=== PATIENT | female | born 1995 | race Caucasian/White ===

== ENCOUNTER 2019-07-24 19:00 | Emergency (ER) | payer OTHER ==
[~2019-07-24] VITALS: Ht 172.7 cm; Wt 111.1 kg
[2019-07-24] MEDS ORDERED: LATUDA40 MG PO (19:15)
[2019-07-24] MEDS ORDERED: DEXTROAMP-AMPHE20 MG PO (19:15)
[2019-07-24] MEDS ORDERED: IBUPROFEN800 MG PO (19:15)
[2019-07-24] MEDS ORDERED: MIRTAZAPINE7.5 MG PO (19:15)
[2019-07-24] MEDS ORDERED: PRAZOSIN HCL2 MG PO (19:16)
== END 2019-07-24 20:30 | disposition home or self-care (01) ==
LOC: ED 19:00
DX: S63.502A Unspecified sprain of left wrist, initial encounter (principal); X58.XXXA Exposure to other specified factors, initial encounter; F32.9 Major depressive disorder, single episode, unspecified; F41.9 Anxiety disorder, unspecified; F17.200 Nicotine dependence, unspecified, uncomplicated; Z88.8 Allergy status to other drugs, medicaments and biological substances; Z79.899 Other long term (current) drug therapy
CPT/HCPCS: 73110; 99283-25

== ENCOUNTER 2019-09-08 23:56 | Emergency (ER) | payer OTHER ==
[~2019-09-08] VITALS: Ht 172.7 cm; Wt 111.1 kg
[~2019-09-08 23:56] MED LIST: DEXTROAMP-AMPHE20 MG PO; IBUPROFEN800 MG PO; LATUDA40 MG PO; MIRTAZAPINE7.5 MG PO; PRAZOSIN HCL2 MG PO
--- OUTSIDE RECORDS SUMMARY | 2019-09-08 23:58 | XMS ---
PreManage Notification: SAMARA LYONS [employer] Events No recent Security Events currently on file CRITERIA MET - [facility] Has Care Guidelines CARE PROVIDERS There are no care providers on record at this time. Guidelines Source: [facility] [place] Guidelines Date: 07/27/2019 Care Coordination: Receiving mental health services with [facility].\T\nbsp; Please contact [facility] for mental health concerns.\T\nbsp; [facility] office: [phone]\T\nbsp; [place] office: [phone]. E.D. VISIT COUNT (12 MO.) [address] TOTAL 3 NOTE: Visits indicate total known visits. ED/UCC VISIT TRACKING (12 MO.) 09/08/2019 23:57 [facility] TYPE: Emergency COMPLAINT: - VOMITING 07/24/2019 19:00 [facility] TYPE: Emergency COMPLAINT: - WRIST INJURY DIAGNOSES: - Unspecified sprain of left wrist, initial encounter - Other correction (current) drug therapy - Anxiety disorder, unspecified - Allergy status to oth drug/meds/biol subst status - Nicotine dependence, unspecified, uncomplicated - Major depressive disorder, single episode, unspecified - Exposure to other specified factors, initial encounter [facility] DIAGNOSES: - Dizziness - Dysmenorrhea, unspecified - Diarrhea - Abdominal Pain - Nausea - Dizziness; Nausea; Abdominal Pain INPATIENT VISIT TRACKING (12 MO.) No inpatient visits to display in this time frame [email or web address]
== END 2019-09-09 03:06 | disposition home or self-care (01) ==
LOC: ED 23:56
DX: K52.9 Noninfective gastroenteritis and colitis, unspecified (principal); F32.9 Major depressive disorder, single episode, unspecified; F43.10 Post-traumatic stress disorder, unspecified; F17.200 Nicotine dependence, unspecified, uncomplicated; Z88.8 Allergy status to other drugs, medicaments and biological substances; Z79.899 Other long term (current) drug therapy
CPT/HCPCS: 80053; 81001; 83690; 84703; 85025; 96361; 96374; 99284-25; J2405; J7030

== ENCOUNTER 2022-04-21 13:10 | Emergency (ER) | payer OTHER ==
[~2022-04-21] VITALS: Ht 172.7 cm; Wt 113.4 kg
[2022-04-21] MEDS ORDERED: SERTRALINE HCL25 MG PO (13:16)
[2022-04-21] MEDS ORDERED: NAPROSYN500 MG PO (13:49)
[2022-04-21] MEDS ORDERED: LIDODERM1 EACH TOP (13:49)
== END 2022-04-21 14:21 | disposition home or self-care (01) ==
LOC: ED 13:10
DX: S16.1XXA Strain of muscle, fascia and tendon at neck level, initial encounter (principal); S06.0X0A Concussion without loss of consciousness, initial encounter; F17.200 Nicotine dependence, unspecified, uncomplicated; V89.2XXA Person injured in unspecified motor-vehicle accident, traffic, initial encounter; Z88.8 Allergy status to other drugs, medicaments and biological substances; Z79.899 Other long term (current) drug therapy
CPT/HCPCS: A9270; J1885

== ENCOUNTER 2022-06-20 20:50 | Emergency (ER) | payer OTHER ==
[~2022-06-20] VITALS: Ht 172.7 cm; Wt 113.4 kg
[~2022-06-20 20:50] MED LIST changes: +LIDODERM1 EACH TOP; +NAPROSYN500 MG PO; +SERTRALINE HCL25 MG PO
[2022-06-20] MEDS ORDERED: VENTOLIN HFA18 GM INH (22:29)
[2022-06-20] MEDS ORDERED: PREDNISONE20 MG PO (22:29)
== END 2022-06-20 22:38 | disposition home or self-care (01) ==
LOC: ED 20:50
DX: J45.901 Unspecified asthma with (acute) exacerbation (principal); F17.200 Nicotine dependence, unspecified, uncomplicated; Z88.8 Allergy status to other drugs, medicaments and biological substances; Z79.899 Other long term (current) drug therapy; Z20.822 Contact with and (suspected) exposure to COVID-19
CPT/HCPCS: 71045; 87502; 99285-25; J7512; U0003

== ENCOUNTER 2024-01-18 00:24 | Emergency (ER) | payer OTHER ==
[~2024-01-18] VITALS: Ht 172.7 cm; Wt 110.0 kg
[~2024-01-18 00:24] MED LIST changes: +COLACE100 MG PO; +OXYCONTIN10 MG PO; +PRAZOSIN HCL1 MG PO; +PREDNISONE20 MG PO; +PROVENTIL HFA6.7 GM INH; +SERTRALINE HCL100 MG PO; +TYLENOL325 M1 PO; +VENTOLIN HFA18 GM INH
[2024-01-18] MEDS ORDERED: SERTRALINE HCL100 MG PO (00:31)
[2024-01-18] MEDS ORDERED: VENTOLIN HFA18 GM INH (00:32)
[2024-01-18] MEDS ORDERED: BUPROPION HCL75 MG PO (00:33)
[2024-01-18 00:46] LABS: BASOPHILS 0.6 % (0-2); EOSINOPHILS 3.4 % (0-6); HEMATOCRIT 39.5 % (35.0-50.0); HEMOGLOBIN 13.3 g/dL (12.0-18.0); LYMPHOCYTES 19.7 % (24-44); MCH 32.6 (27-36); MCHC 33.7 g/dl (30-36); MCV 96.7 fl (81-99); MONOCYTES 8.1 % (0-12); NEUTROPHILS 68.2 % (39-80); PLATELET COUNT 266 K/uL (140-440); RBC 4.09 M/ul (4.3-5.7); RDW 13.4 (10.5-15.0)
[2024-01-18 00:59] LABS: BILIRUBIN, URINE NEGATIVE (negative); BLOOD/HGB, URINE NEGATIVE (Negative); KETONE, URINE NEGATIVE (Negative); LEUK ESTERASE, URINE NEGATIVE (negative); NITRITE, URINE NEGATIVE (negative); PH, URINE 6.5 (5-7)
[2024-01-18 01:10] LABS: ACETAMINOPHEN 0 ug/mL (10-30); ALBUMIN 3.2 g/dL (3.4-5.0); ALBUMIN/GLOBULIN RATIO 0.86 (1.1-2.4); ALCOHOL, MEDICAL <3 ng/dL (<3); ALKALINE PHOSPHATASE 74 U/L (46-116); ALT (SGPT) 17 U/L (14-59); ANION GAP 14.4 (7-21); AST (SGOT) 14 U/L (15-37); BILIRUBIN, TOTAL 0.2 ng/dL (0.2-1.0); BUN/CREATININE RATIO 8.95 (6.0-28.6); CALCIUM 8.5 mg/dL (8.5-10.1); CARBON DIOXIDE 25 mmol/L (21-32); CHLORIDE 106 mmol/L (98-107); CREATININE, SERUM 0.67 mg/dL (0.55-1.02); GLOMERULAR FILTRATION RATE,EST 123 mL/min (>60); POTASSIUM 3.4 mmol/L (3.5-5.1); PROTEIN, TOTAL 6.9 g/dL (6.4-8.2); SALICYLATE 2.6 mg/dL (2.8-20.0); TSH, 3RD GENERATION 6.437 uIU/mL (0.358-3.740); UREA NITROGEN 6 mg/dL (7-18)
[2024-01-18 01:13] LABS: AMPHETAMINES, URINE NEGATIVE (NEGATIVE); BARBITURATES, URINE NEGATIVE (NEGATIVE); BENZODIAZEPINE, URINE NEGATIVE (NEGATIVE); BUPRENORPHINE, URINE NEGATIVE (NEGATIVE); CANNABINOID, URINE POSITIVE (NEGATIVE); COCAINE, URINE NEGATIVE (NEGATIVE); ECSTASY, URINE NEGATIVE (NEGATIVE); FENTANYL, URINE NEGATIVE (NEGATIVE); METHADONE, URINE NEGATIVE (NEGATIVE); OPIATES, URINE NEGATIVE (NEGATIVE); OXYCODONE, URINE NEGATIVE (NEGATIVE); PHENCYCLIDINE, URINE NEGATIVE (NEGATIVE)
[2024-01-18] MEDS ORDERED: LORazepam 1 MG TAB PO ONE (04:15)
[2024-01-18 04:46] LABS: INFLUENZA B NAA NEGATIVE (NEGATIVE); RESPIRATORY SYNCYTIAL VIR NAA NEGATIVE (NEGATIVE)
--- NOTE | 2024-01-18 15:10 | EKG ---
[facility] [address] [place], [place] [address] Signed Sinus bradycardia with sinus arrhythmia Otherwise normal ECG No previous ECGs available Confirmed by Mauricio Montoya ([id number]) on 01/18/2024 3:09:56 PM Electronically Signed By: MAURICIO MONTOYA MD 01/18/24 1510 PATIENT NAME: SAMARA LYONS Electrocardiogram DATE OF : [birth year] PHYSICIAN: MAURICIO MONTOYA MD REPORT #: [id number] REPORT IS CONFIDENTIAL AND NOT TO BE RELEASED WITHOUT AUTHORIZATION
[2024-01-18] MEDS ORDERED: ACETAMINOPHEN 500 MG TAB PO ONE (21:45)
[2024-01-19 07:36] VITALS: BP 139/83
== END 2024-01-19 07:36 ==
LOC: ED 00:24
PROVIDERS: Internal Medicine
DX: T43.222A Poisoning by selective serotonin reuptake inhibitors, intentional self-harm, initial encounter (principal); R07.2 Precordial pain; R45.851 Suicidal ideations; F17.200 Nicotine dependence, unspecified, uncomplicated; Z88.8 Allergy status to other drugs, medicaments and biological substances; Z11.52 Encounter for screening for COVID-19
CPT/HCPCS: 36415; 80053; 80307; 81003; 83735; 84443; 84703; 85025; 87502; 93005; 93010; A9270; A9270-GY; G0480; U0002